=== PATIENT | male | born 1960 | race African-American/Black ===

== ENCOUNTER 2018-07-21 20:33 | Emergency (ER) | payer SELFPAY ==
[~2018-07-21] VITALS: Ht 167.6 cm; Wt 47.6 kg
--- NOTE | 2018-07-21 20:45 | NUR ---
ED Nurse Note: Pt walked in ER and c/o general body pain, tingling sensation, Pt has Hx of FIBROMYALGIA and anxiety. Pt is AO x 4times, VSS, on room air no distress.
[2018-07-21 20:58] VITALS: BP 112/70
--- NOTE | 2018-07-21 21:32 | NUR ---
ED Nurse Note: blood sample sent to lab.
[2018-07-21 21:41] LABS: BASOPHILS % (AUTO) 1.8 % (0.0-2.0); EOSINOPHILS % (AUTO) 7.9 % (0.0-3.0); HEMATOCRIT 40.5 % (42.0-52.0); HEMOGLOBIN 13.3 G/DL (14.2-18.0); LYMPHOCYTES % (AUTO) 25.9 % (20.0-45.0); MEAN CORPUSCULAR VOLUME 100 FL (80-99); MONOCYTES % (AUTO) 8.8 % (1.0-10.0); NEUTROPHILS % (AUTO) 55.6 % (45.0-75.0); PLATELET COUNT 229 K/UL (150-450); RED BLOOD COUNT 4.03 M/UL (4.70-6.10); RED CELL DISTRIBUTION WIDTH 13.5 % (11.6-14.8)
--- NOTE | 2018-07-21 21:46 | NUR ---
ED Nurse Note: X ray at bedside.
[2018-07-21 21:52] LABS: ANION GAP 8 mmol/L (5-15); BLOOD UREA NITROGEN 15 mg/dL (7-18); CALCIUM 8.9 MG/DL (8.5-10.1); CARBON DIOXIDE 30 MMOL/L (21-32); CHLORIDE 104 MMOL/L (98-107); POTASSIUM 3.6 MMOL/L (3.5-5.1); SODIUM 142 MMOL/L (136-145)
[2018-07-21 22:14] LABS: ALANINE AMINOTRANSFERASE 28 U/L (12-78); ALBUMIN 3.8 G/DL (3.4-5.0); ALKALINE PHOSPHATASE 119 U/L (46-116); ASPARTATE AMINO TRANSFERASE 22 U/L (15-37); BILIRUBIN,TOTAL 0.4 MG/DL (0.2-1.0); CKMB 0.9 NG/ML (0.0-3.6); CREATINE KINASE 54 U/L (26-308)
[2018-07-21] MEDS ORDERED: NEURONTIN600 MG ORAL (22:25)
[2018-07-21] MEDS ORDERED: IBUPROFEN600 MG ORAL (22:25)
--- NOTE | 2018-07-21 22:39 | NUR ---
ED Nurse Note: Patient is being discharged from ED after being medically cleared by ERMD, patient acknowledged the need to follow up with PMD within a week if symptoms dont improve, patient's prescriptions in hand and is leaving ambulatory with a steady gait, VSS, no distress noted, Id band and IV site removed. Pt walked out unit with steady gait.
[2018-07-21 22:40] VITALS: BP 108/78
[2018-07-21 22:41] VITALS: BP 108/78
--- NOTE | 2018-07-22 00:33 | Emergency Room Report ---
History of Present Illness General Chief Complaint: Pain Source: Patient Present Illness HPI Patient presents with reports of diffuse body aches He has cardiac disease in his family patient reports that he was also diagnosed with fibromyalgia in November He has had difficulty obtaining appropriate follow-up since March patient reports that he is HIV positive however has Appropriate CD4 count and was following closely previously Denies any vomiting denies any diarrhea patient felt at times tremulous over the past 1 month was questioning his thyroid Patient complains of significant neuropathy that he has been diagnosed with previous as well however does not want to take any medications And does not like taking medications Denies any shortness of breath however He had questionable chest pain off and on as well however none currently denies any recent travel Allergies: Coded Allergies: No Known Allergies (Unverified , 07/21/18) Patient History Past Medical History: see triage record Pertinent Family History: none Reviewed Nursing Documentation: PMH: Agreed; PSxH: Agreed Nursing Documentation-PMH Hx Cancer: Yes - HIV + , FIBROMYALGIA Review of Systems All Other Systems: negative except mentioned in HPI Physical Exam Vital Signs Date Time Temp Pulse Resp B/P (MAP) Pulse Ox O2 Delivery O2 Flow Rate FiO2 07/21/18 20:39 98.4 104 22 103/68 98 Room Air Sp02 EP Interpretation: reviewed, normal General Appearance: well appearing, no apparent distress Head: normocephalic, atraumatic Eyes: bilateral eye PERRL, bilateral eye EOMI ENT: hearing grossly normal, normal pharynx, TMs + canals normal, uvula midline Neck: full range of motion, supple, no meningismus, no bony tend Respiratory: lungs clear, normal breath sounds, no rhonchi, no respiratory distress, no retraction, no accessory muscle use Cardiovascular #1: normal peripheral pulses, regular rate, rhythm, no edema, no gallop, no JVD, no murmur Gastrointestinal: normal bowel sounds, non tender, soft, no mass, no organomegaly, non-distended, no guarding, no hernia, no pulsatile mass, no rebound Genitourinary: no CVA tenderness Musculoskeletal: normal inspection Neurologic: oriented x3, responsive, 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, motor strength/ tone normal, sensory intact Psychiatric: mood/affect normal Skin: normal color, no rash, warm/dry, palpation normal Lymphatic: normal inspection, no adenopathy Medical Decision Making Diagnostic Impression: Primary Impression: neuropathy Additional Impression: Myalgia ER Course Multiple differentials considered patient does have multiple comorbidities extensive blood work and EKG obtained EKG shows early repolarization also consistent with the patient's Thin body habitus at this time pain-free Patient's troponin was negative blood work all appropriate patient feels better throughout his stay and is stable for close outpatient follow-up Labs Test 07/21/18 21:30 White Blood Count 6.0 K/UL (4.8-10.8) Red Blood Count 4.03 M/UL (4.70-6.10) Hemoglobin 13.3 G/DL (14.2-18.0) Hematocrit 40.5 % (42.0-52.0) Mean Corpuscular Volume 100 FL (80-99) Mean Corpuscular Hemoglobin 32.9 PG (27.0-31.0) Mean Corpuscular Hemoglobin Concent 32.7 G/DL (32.0-36.0) Red Cell Distribution Width 13.5 % (11.6-14.8) Platelet Count 229 K/UL (150-450) Mean Platelet Volume 6.0 FL (6.5-10.1) Neutrophils (%) (Auto) 55.6 % (45.0-75.0) Lymphocytes (%) (Auto) 25.9 % (20.0-45.0) Monocytes (%) (Auto) 8.8 % (1.0-10.0) Eosinophils (%) (Auto) 7.9 % (0.0-3.0) Basophils (%) (Auto) 1.8 % (0.0-2.0) Sodium Level 142 MMOL/L (136-145) Potassium Level 3.6 MMOL/L (3.5-5.1) Chloride Level 104 MMOL/L (98-107) Carbon Dioxide Level 30 MMOL/L (21-32) Anion Gap 8 mmol/L (5-15) Blood Urea Nitrogen 15 mg/dL (7-18) Creatinine 1.0 MG/DL (0.55-1.30) Estimat Glomerular Filtration Rate > 60 mL/min (>60) Glucose Level 105 MG/DL (74-106) Calcium Level 8.9 MG/DL (8.5-10.1) Total Bilirubin 0.4 MG/DL (0.2-1.0) Aspartate Amino Transf (AST/SGOT) 22 U/L (15-37) Alanine Aminotransferase (ALT/SGPT) 28 U/L (12-78) Alkaline Phosphatase 119 U/L (46-116) Total Creatine Kinase 54 U/L (26-308) Creatine Kinase MB 0.9 NG/ML (0.0-3.6) Creatine Kinase MB Relative Index 1.6 Troponin I 0.003 ng/mL (0.000-0.056) Total Protein 7.6 G/DL (6.4-8.2) Albumin 3.8 G/DL (3.4-5.0) Globulin 3.8 g/dL Albumin/Globulin Ratio 1.0 (1.0-2.7) Thyroid Stimulating Hormone (TSH) 2.008 uiU/mL (0.358-3.740) Free Thyroxine 0.90 NG/DL (0.76-1.46) Rhythm Strip Diag. Results EP Interpretation: yes Rate: 60 Rhythm: NSR, no PVC's, no ectopy, other - Early repolarization Last Vital Signs Date Time Temp Pulse Resp B/P (MAP) Pulse Ox O2 Delivery O2 Flow Rate FiO2 07/21/18 22:41 98.1 79 20 108/78 100 Room Air Status: improved Disposition: HOME, SELF-CARE Condition: Improved Scripts Ibuprofen* (MOTRIN*) 600 Mg Tablet 600 MG ORAL Q8H PRN for For Pain, #20 TAB 0 Refills Prov: Isaac Smiley DO 07/21/18 Gabapentin* (NEURONTIN*) 600 Mg Tablet 600 MG ORAL EVERY 8 HOURS, #21 TAB Prov: Isaac Smiley DO 07/21/18 Referrals: NON PHYSICIAN (PCP) Kyle Antonio [facility] Patient Instructions: Neuropathic Pain, Weakness, Vuce-te-Oawe Additional Instructions: Patient is provided with the discharge instructions notified to follow up with primary doctor in the next 2-3 days otherwise return to the er with any worsening symptoms. Please note that this report is being documented using [employer] technology. This can lead to erroneous entry secondary to incorrect interpretation by the dictating instrument. Isaac Smiley DO Jul 22, 2018 00:33
--- NOTE | 2018-07-23 11:10 | Cardiology Report ---
APPROVED REPORT EKG Measurement Heart [id number] Normal sinus rhythm Right atrial enlargement ST elevation, consider early repolarization, pericarditis, or injury Abnormal ECG
== END 2018-07-21 22:43 | disposition home or self-care (01) ==
LOC: EMR 21:08
DX: G62.9 Polyneuropathy, unspecified (principal); M79.10 Myalgia, unspecified site; F17.200 Nicotine dependence, unspecified, uncomplicated; F12.90 Cannabis use, unspecified, uncomplicated; Z85.9 Personal history of malignant neoplasm, unspecified
CPT/HCPCS: 36415; 71045; 80053; 82550; 82553; 84439; 84443; 84484; 85025; 93005; 99284